=== PATIENT | female | born 1980 | race African-American/Black ===

== ENCOUNTER 2017-05-23 17:32 | Emergency (ER) | payer BC ==
[~2017-05-23] VITALS: Ht 160 cm; Wt 57.6 kg
[2017-05-23 19:03] VITALS: BP 125/64
== END 2017-05-23 19:03 | disposition home or self-care (01) ==
LOC: ED 17:32
DX: S92.902A Unspecified fracture of left foot, initial encounter for closed fracture (principal); X58.XXXA Exposure to other specified factors, initial encounter; Y93.89 Activity, other specified; Y99.8 Other external cause status; Y92.89 Other specified places as the place of occurrence of the external cause
CPT/HCPCS: J1885

== ENCOUNTER 2018-08-30 22:03 | Emergency (ER) | payer BC ==
[~2018-08-30] VITALS: Ht 160 cm; Wt 59.9 kg
[2018-08-30 22:05] VITALS: BP 124/88; Ht 160 cm; Wt 59.9 kg
== END 2018-08-30 23:27 | disposition left against medical advice (07) ==
LOC: ED 22:03
DX: Z53.21 Procedure and treatment not carried out due to patient leaving prior to being seen by health care provider (principal)